=== PATIENT | female | born 1950 | race Caucasian/White ===

== ENCOUNTER → 2017-05-25 | Outpatient (CLI) | payer OTHER | END | disposition disaster alternative care site (69) | LOC: GRAD 16:00 | DX: M46.90 Unspecified inflammatory spondylopathy, site unspecified (principal); M47.896 Other spondylosis, lumbar region ==

== ENCOUNTER → 2017-06-25 | Outpatient (CLI) | payer OTHER, MEDICARE ==
[~2017-06-25] MED LIST: ALEVE220 MG PO; CALCIUM500 MG PO; FISH OIL 11600 MG/5; RESTASIS1 EACH OPHTH; VITAMIN D-32000 UNI1 PO
[2017-06-25 15:12] LABS: INR - (THERAPEUTIC) 0.98 (0.92-1.07); PROTIME 10.3 SECONDS (9.8-11.4)
== END ==
LOC: LGSMG 15:00
PROVIDERS: Student in an Organized Health Care Education/Training Program
DX: Z01.818 Encounter for other preprocedural examination (principal)